=== PATIENT | female | born 1965 | race Caucasian/White ===

== ENCOUNTER 2016-08-16 20:05 | Emergency (ER) | payer OTHER ==
[~2016-08-16] VITALS: Ht 165.1 cm; Wt 71.2 kg
[2016-08-16 20:28] LABS: BASOPHILS % (AUTO) 0.7 % (0.0-2.0); LYMPHOCYTES # (AUTO) 1.4 /CMM (0.8-4.8); MONOCYTES # (AUTO) 0.6 /CMM (0.1-1.30); NEUTROPHILS # (AUTO) 5.1 /CMM (1.8-8.9)
[2016-08-16] MEDS ORDERED: IV NS 0.9% 1,000 ML BAG IV ONE (20:30)
[2016-08-16] MEDS ORDERED: MECLIZINE HCL 12.5 MG TABLET PO ONE (20:30)
[2016-08-16] MEDS ORDERED: ONDANSETRON HCL/PF 4 MG/2 ML VIAL IVP ONE (20:30)
[2016-08-16] MEDS ORDERED: LORAZEPAM INJ 2 MG/ML VIAL IV ONE (20:30)
--- NOTE | 2016-08-16 20:30 | NUR ---
TO BED 2 A 51 YO FEMALE BIBRA 86 C/O N/V AND DIZZINESS SINCE 6:45PM TODAY. PT C/O LEFT EYE PRESSURE. PT WITH HX OF VERTIGO. PATIENT IS AAOX4, VSS, NAD NOTED. NONDIAPHORETIC. SAFETY AND COMFORT MEASURES RENDERED. GOWED. AWAITING FOR ER MD WALTON.
[2016-08-16 20:41] LABS: CALCIUM, SERUM 8.6 mg/dL (8.5-10.1); CREATININE 0.8 mg/dL (0.6-1.3); EOSINOPHILS % (AUTO) 0.2 % (0.0-6.0); HEMATOCRIT 44 % (33-45); HEMOGLOBIN 14.6 g/dL (11.5-14.8); LYMPHOCYTES % (AUTO) 19.8 % (20.0-44.0); MEAN CORPUSCULAR HEMOGLOBIN 30 PG (26.0-33.0); MEAN CORPUSCULAR HGB CONC 33 g/dl (31.0-36.0); MEAN CORPUSCULAR VOLUME 92 fL (82-100); MONOCYTES % (AUTO) 8.2 % (2.0-12.0); NEUTROPHILS % (AUTO) 71.1 % (43.0-81.0); PLATELET COUNT (AUTO) 274 /CMM (150-450); POTASSIUM 3.2 mmol/L (3.5-5.1); RED BLOOD CELL COUNT(AUTO) 4.84 MIL/uL (4.0-5.2); WHITE BLOOD COUNT (AUTO) 7.1 K/uL (4.3-11.0)
[2016-08-16] MEDS ORDERED: MECLIZINE HCL 25 MG TABLET ONE (20:46)
[2016-08-16] MEDS ORDERED: LORAZEPAM INJ 2 MG/ML VIAL ONE (20:46)
[2016-08-16] MEDS ORDERED: IV NS 0.9% 1,000 ML ONE (20:47)
[2016-08-16] MEDS ORDERED: IV SET PRIMARY 1 EA INFUS.SET MC ONE (20:47)
[2016-08-16] MEDS ORDERED: ONDANSETRON HCL/PF 4 MG/2 ML VIAL ONE (20:47)
[2016-08-16] MEDS ORDERED: diphenhydrAMINE HCL 50 MG/ML VIAL IV ONE (21:00)
[2016-08-16] MEDS ORDERED: METOCLOPRAMIDE HCL 10 MG/2 ML VIAL IV ONE (21:00)
--- NOTE | 2016-08-16 21:00 | NUR ---
STARTED A SA LINE LOCK ON THE LEFT HAND G20, BLOOD RAWN AND SENT TO LAB.
[2016-08-16] MEDS ORDERED: diphenhydrAMINE HCL 50 MG/ML VIAL ONE (21:09)
[2016-08-16] MEDS ORDERED: METOCLOPRAMIDE HCL 10 MG/2 ML VIAL ONE (21:09)
--- NOTE | 2016-08-16 21:30 | NUR ---
patient to ct.
--- NOTE | 2016-08-16 21:40 | NUR ---
BACK FROM CT.
--- NOTE | 2016-08-16 22:13 | NUR ---
IV removed. Catheter intact and site benign. Pressure and 4x4 applied to site. No bleeding noted. Patient discharged to home in stable condition. Written and verbal after care instructions given. Patient verbalizes understanding of instruction. Patient is ambulatory with steady gait, no further complaints.
[2016-08-16 22:14] VITALS: BP 122/71
== END 2016-08-16 22:15 | disposition home or self-care (01) ==
LOC: ER 20:06
DX: R42 Dizziness and giddiness (principal); R11.2 Nausea with vomiting, unspecified; R19.7 Diarrhea, unspecified; M54.9 Dorsalgia, unspecified; G89.29 Other chronic pain
CPT/HCPCS: 36415; 70450; 80048; 85025; 93005; 96361; 96374; 96375; 99285; A4606; J1200; J2060; J2405; J2765; J7030; J8597; Z7610